=== PATIENT | female | born 2000 | race Caucasian/White ===

== ENCOUNTER 2019-01-19 18:14 | Outpatient (CLI) | payer OTHER, MEDICAID | END 2019-01-19 22:00 | disposition home or self-care (01) | LOC: OBT 18:14 → L-D 18:14 → OBT 22:00 | DX: O26.843 Uterine size-date discrepancy, third trimester (principal); Z3A.37 37 weeks gestation of pregnancy | CPT/HCPCS: 76815; 76818 ==

== ENCOUNTER 2019-01-29 17:22 | Outpatient (CLI) | payer OTHER | END 2019-01-29 20:13 | disposition home or self-care (01) | LOC: OBT 17:22 → L-D 17:23 → OBT 20:13 | DX: O62.9 Abnormality of forces of labor, unspecified (principal); Z3A.38 38 weeks gestation of pregnancy | CPT/HCPCS: Z7500 ==

== ENCOUNTER 2019-02-04 04:40 | Inpatient (IN) | payer OTHER ==
[2019-02-04] MEDS ORDERED: OXYTOCIN 30 UNITS/LR 500 ML IV ×2 (05:30→17:30)
[2019-02-04] MEDS ORDERED: BUTORPHANOL 2 MG INJ IV (05:30)
[2019-02-04] MEDS ORDERED: LIDOCAINE 1% (MPF) 30 ML INJ INJ (05:30)
[2019-02-04] MEDS ORDERED: METHYLERGONOVINE 0.2 MG INJ IM ×2 (05:30→17:30)
[2019-02-04] MEDS ORDERED: CARBOPROST 250 MCG INJ IM ×2 (05:30→17:30)
[2019-02-04] MEDS ORDERED: MISOPROSTOL 200 MCG TAB PR ×2 (05:30→17:30)
[2019-02-04] MEDS ORDERED: IBUPROFEN 600 MG TAB PO (05:30)
[2019-02-04] MEDS: LACTATED RINGER'S 1,000 ML IV ×3 (06:15→11:43)
[2019-02-04] MEDS: AMPICILLIN 2 GM/NS (PMX) 100 ML IV (06:15)
[2019-02-04] MEDS: OXYTOCIN 30 UNITS/LR 500 ML IV ×3 (06:16→13:53)
[2019-02-04 06:25] LABS: ADD MAN DIFF? NO
[2019-02-04 06:26] LABS: WHITE BLOOD COUNT 9.8 10^3/ul (4.8-10.8)
[2019-02-04 06:26] LABS: BASOPHIL # 0.1 10^3/ul (0.0-0.1); BASOPHILS % 0.5 % (0.0-2.0); EOSINOPHILS # 0.3 10^3/ul (0.0-0.5); EOSINOPHILS % 2.7 % (0.0-7.0); HEMATOCRIT 36.6 % (37.0-47.0); HEMOGLOBIN 12.2 g/dl (12.0-16.0); LYMPHOCYTES # 2.5 10^3/ul (0.8-2.9); LYMPHOCYTES % 25.9 % (18.0-55.0); MEAN CORPUSCULAR HEMOGLOBIN 32.4 pg (29.0-33.0); MEAN CORPUSCULAR HGB CONC 33.3 g/dl (32.0-37.0); MEAN CORPUSCULAR VOLUME 97.3 fl (72.0-104.0); MEAN PLATELET VOLUME 10.4 fl (7.4-10.4); MONOCYTE # 0.8 10^3/ul (0.3-0.9); MONOCYTES % 8.2 % (0.0-13.0); NEUTROPHIL # 6.1 10^3/ul (1.6-7.5); PLATELET COUNT 245 10^3/UL (140-415); RED BLOOD COUNT 3.76 10^6/ul (4.20-5.40); RED CELL DISTRIBUTION WIDTH 13.1 % (11.5-14.5)
[2019-02-04 06:45] LABS: INR 0.84; PARTIAL THROMBOPLASTIN TIME 23.3 Sec (23.0-35.0); PROTIME 11.6 Sec (11.9-14.9); PT RATIO 0.9
[2019-02-04] MEDS: AMPICILLIN 1 GM/NS (PMX) 50 ML IV ×2 (09:09→13:14)
[2019-02-04] MEDS ORDERED: FENTAnyl 2MCG/ML-ROPIV 0.2% 100 ML (09:19)
[2019-02-04] MEDS ORDERED: NALOXONE (0.4 MG/ML) INJ IV (10:00)
[2019-02-04 10:29] LABS: HEPATITIS B SURFACE ANTIGEN NEGATIVE (NEGATIVE)
[2019-02-04] MEDS: FENTAnyl 2MCG/ML-ROPIV 0.2% 100 ML BAG EPI (11:40)
[2019-02-04] MEDS: MINERAL OIL LIGHT 10 ML VIAL TOP (13:17)
[2019-02-04 15:36] LABS: RAPID PLASMA REAGIN NONREACTIVE (NR)
[2019-02-04] MEDS: DEXTROSE 5%-LR 1,000 ML IV (17:16)
[2019-02-04] MEDS ORDERED: MAGNESIUM HYDROXIDE 30ML CUP PO (17:30)
[2019-02-04] MEDS ORDERED: ACETAMINOPHEN 325 MG TAB PO (17:30)
[2019-02-04] MEDS ORDERED: DIBUCAINE 1% 30 GM OINT TOP (17:30)
[2019-02-04] MEDS ORDERED: DIPHENHYDRAMINE 50 MG INJ IV (17:30)
[2019-02-04] MEDS ORDERED: ZOLPIDEM 5 MG TAB PO (17:30)
[2019-02-04] MEDS ORDERED: LANOLIN HPA 1 PKT TOP (17:30)
[2019-02-04] MEDS ORDERED: ONDANSETRON 4 MG INJ IV (17:30)
[2019-02-04] MEDS ORDERED: SENNA/DOCUSATE NA (8.6MG/50MG) TAB PO (17:30)
[2019-02-04] MEDS ORDERED: OXYCODONE/ASPIRIN (4.88/325) TAB PO (17:30)
[2019-02-04] MEDS: BENZOCAINE 20% 56 ML SPRAY TOP (17:35)
[2019-02-04] MEDS: LACTATED RINGER'S 1,000 ML IV* (17:35)
[2019-02-04] MEDS: WITCH HAZEL/GLYCERIN PAD PR (17:35)
[2019-02-04] MEDS: IBUPROFEN 600 MG TAB PO (17:35)
[2019-02-05] MEDS: IBUPROFEN 600 MG TAB PO ×5 (00:08→23:49)
[2019-02-05] MEDS: LACTATED RINGER'S 1,000 ML IV* ×3 (01:16→17:16)
[2019-02-05 07:49] LABS: ADD MAN DIFF? NO
[2019-02-05 07:54] LABS: WHITE BLOOD COUNT 10.9 10^3/ul (4.8-10.8)
[2019-02-05 07:54] LABS: BASOPHILS % 0.4 % (0.0-2.0); EOSINOPHILS # 0.2 10^3/ul (0.0-0.5); EOSINOPHILS % 2.2 % (0.0-7.0); HEMATOCRIT 37.4 % (37.0-47.0); HEMOGLOBIN 12.1 g/dl (12.0-16.0); LYMPHOCYTES # 2.2 10^3/ul (0.8-2.9); LYMPHOCYTES % 20.4 % (18.0-55.0); MEAN CORPUSCULAR HEMOGLOBIN 31.7 pg (29.0-33.0); MEAN CORPUSCULAR HGB CONC 32.4 g/dl (32.0-37.0); MEAN CORPUSCULAR VOLUME 97.9 fl (72.0-104.0); MEAN PLATELET VOLUME 10.1 fl (7.4-10.4); MONOCYTE # 0.7 10^3/ul (0.3-0.9); MONOCYTES % 6.3 % (0.0-13.0); NEUTROPHIL # 7.7 10^3/ul (1.6-7.5); NEUTROPHILS % 70.2 % (30.0-74.0); PLATELET COUNT 218 10^3/UL (140-415); RED BLOOD COUNT 3.82 10^6/ul (4.20-5.40); RED CELL DISTRIBUTION WIDTH 13.4 % (11.5-14.5)
[2019-02-06] MEDS: LACTATED RINGER'S 1,000 ML IV* ×2 (01:16→09:16)
[2019-02-06] MEDS: IBUPROFEN 600 MG TAB PO ×2 (05:40→12:11)
[2019-02-06] MEDS: MEASLES,MUMPS,RUBELLA VACCINE INJ SC* (09:00)
[2019-02-06] MEDS: DIPHTH/TET/ACEL PERTUSS (ADULT) 0.5 ML VIAL IM* (12:10)
== END 2019-02-06 14:55 | disposition home or self-care (01) | DRG 807 ==
LOC: OBT 04:40 → L-D 04:40 → OBT 05:11 → L-D 05:11 → PP1 16:41
PROVIDERS: Obstetrics & Gynecology
PROC: 10E0XZZ Delivery of Products of Conception, External Approach (ICD-10-PCS; principal; ~2019-02-04)
DX: O80 Encounter for full-term uncomplicated delivery (principal); Z37.0 Single live birth; Z3A.39 39 weeks gestation of pregnancy
CPT/HCPCS: 62322; 85025; 85610; 85730; 86592; 86850; 86900; 86901; 87340; 90715